=== PATIENT | male | born 1950 | race Caucasian/White ===

== ENCOUNTER 2023-07-31 08:28 | Day surgery (SDC) | payer OTHER ==
[~2023-07-31] VITALS: Ht 180.3 cm; Wt 94.4 kg
[~2023-07-31 08:28] MED LIST: ATOR10 PO; Balanced Salt Epinephrine Irrigation Solution 500 mL IR SCH; GLUCOPHAGE1000 M1 PO; INVOKANA300 MG PO; Inderal 20 mg T20 MG PO; LEVEMIR100 UNIT/1; LEVOTHYROXINE175 MC9 PO; Lidocaine HCl/Pf 1% 5 ML VIAL XX SCH; Moxifloxacin HCL 0.5 MG/0.1 ML 0.4MLSYR RIGHTEYE SCH; NS 500 ML IV ONE; PHENYLEPHRINE\\TROPICAMIDE\\TETRACAINE OPHTHALMIC DILATING SOLN RIGHTEYE PRN; Povidone-Iodine 450 DROP/30 ML Solution ONE; Povidone-Iodine 450 DROP/30 ML Solution RIGHTEYE SCH; Tropicamide 1% Opth Soln 15 ML BTL ONE; VICTOZA 2-0.6 MG/0.1
[2023-07-31] MEDS ORDERED: TOUJEO MAX300 UNIT/2 (08:44)
[2023-07-31] MEDS ORDERED: NS 500 ML IV ONE (08:53)
--- NOTE | 2023-07-31 08:53 | NUR ---
07/31/23 0853 Jennifer Nix AT 0843 PLEDGET AT 0876
[2023-07-31] MEDS ORDERED: FentaNYL Citrate 50 MCG/ML 2 ML Injection ONE (09:07)
[2023-07-31] MEDS ORDERED: Midazolam HCl 1MG / ML 2ML Vial ONE (09:07)
[2023-07-31] MEDS ORDERED: Ondansetron HCl 2 MG / ML 2ML Vial ONE (09:34)
[2023-07-31] MEDS ORDERED: Tetracaine HCl 0.5% Opth Soln 15 ml XX ONE (09:36)
[2023-07-31 09:51] VITALS: BP 121/66
--- NOTE | 2023-07-31 10:21 | NUR ---
07/31/23 Radha1 Pranay Christine PT'S O2 PERIODICALLY DROPPED BREIFLY TO 88-89% IN SDU. PT WAS ABLE TO RETURN TO >94% WITH DEEP BREATHS. HE DENIED RESPIRATORY SYMPTOMS INCLUDING DIZZINESS AND SOB. NONE WERE OBSERVED. HE WAS GIVEN INCENTIVVE SPIROMETER AND INSTRUCTED IN ITS USE. MILADY ROJAS CONSULTED AND APPROVED D/C. WAS ENCOURAGED TO MONITOR PT AND ENCOURAGE DEEP BREATHS.
== END 2023-07-31 10:15 | disposition home or self-care (01) ==
LOC: ORSCSDS 08:28
PROVIDERS: Student in an Organized Health Care Education/Training Program
PROC: 08RJ3JZ Replacement of Right Lens with Synthetic Substitute, Percutaneous Approach (ICD-10-PCS; principal; 2023-07-31 09:30)
DX: E11.36 Type 2 diabetes mellitus with diabetic cataract (principal); H25.11 Age-related nuclear cataract, right eye; I10 Essential (primary) hypertension; E07.9 Disorder of thyroid, unspecified; Z79.4 Long term (current) use of insulin; Z79.899 Other long term (current) drug therapy; Z87.891 Personal history of nicotine dependence
CPT/HCPCS: 82947; J2250; J2405; J3010; J7040; V2632

== ENCOUNTER 2023-08-14 08:23 | Day surgery (SDC) | payer OTHER ==
[~2023-08-14] VITALS: Ht 180.3 cm; Wt 95.8 kg
[~2023-08-14 08:23] MED LIST changes: +FentaNYL Citrate 50 MCG/ML 2 ML Injection ONE; -GLUCOPHAGE1000 M1 PO; +INSDET100 SC; +METF500 PO; +Midazolam HCl 1MG / ML 2ML Vial ONE; +Moxifloxacin HCL 0.5 MG/0.1 ML 0.4MLSYR LEFTEYE SCH; -Moxifloxacin HCL 0.5 MG/0.1 ML 0.4MLSYR RIGHTEYE SCH; +PHENYLEPHRINE\\TROPICAMIDE\\TETRACAINE OPHTHALMIC DILATING SOLN LEFTEYE PRN; -PHENYLEPHRINE\\TROPICAMIDE\\TETRACAINE OPHTHALMIC DILATING SOLN RIGHTEYE PRN; +Povidone-Iodine 450 DROP/30 ML Solution LEFTEYE SCH; -Povidone-Iodine 450 DROP/30 ML Solution RIGHTEYE SCH; +TOUJEO MAX300 UNIT/2; -Tropicamide 1% Opth Soln 15 ML BTL ONE
[2023-08-14] MEDS ORDERED: TOUJEO MAX300 UNIT/2 SQ (08:34)
[2023-08-14] MEDS ORDERED: NS 500 ML IV ONE ×2 (08:41)
--- NOTE | 2023-08-14 08:41 | NUR ---
08/14/23 0841 Nabil Chavez CALL LIGHT WITHIN REACH. TETRACAINE IN LEFT EYE AT 0835 AND PLEDGETT IN AT 0836
[2023-08-14] MEDS ORDERED: Tetracaine HCl 0.5% Opth Soln 15 ml LEFTEYE ONE (09:16)
[2023-08-14 09:38] VITALS: BP 129/69
== END 2023-08-14 09:47 | disposition home or self-care (01) ==
LOC: ORSCSDS 08:23
PROVIDERS: Student in an Organized Health Care Education/Training Program
PROC: 08RK3JZ Replacement of Left Lens with Synthetic Substitute, Percutaneous Approach (ICD-10-PCS; principal; 2023-08-14 09:30)
DX: E11.36 Type 2 diabetes mellitus with diabetic cataract (principal); H25.12 Age-related nuclear cataract, left eye; Z96.1 Presence of intraocular lens
CPT/HCPCS: 82947; J2250; J3010; J7040; V2632

== ENCOUNTER → 2024-09-15 | Outpatient (CLI) | payer OTHER ==
[~2024-09-15] MED LIST changes: -Balanced Salt Epinephrine Irrigation Solution 500 mL IR SCH; -FentaNYL Citrate 50 MCG/ML 2 ML Injection ONE; -Lidocaine HCl/Pf 1% 5 ML VIAL XX SCH; -Midazolam HCl 1MG / ML 2ML Vial ONE; -Moxifloxacin HCL 0.5 MG/0.1 ML 0.4MLSYR LEFTEYE SCH; -NS 500 ML IV ONE; -PHENYLEPHRINE\\TROPICAMIDE\\TETRACAINE OPHTHALMIC DILATING SOLN LEFTEYE PRN; -Povidone-Iodine 450 DROP/30 ML Solution LEFTEYE SCH; -Povidone-Iodine 450 DROP/30 ML Solution ONE; +TOUJEO MAX300 UNIT/2 SQ
[2024-09-15 19:55] LABS: Creatinine, Urine Random 63.8 mg/dL (27.00-270.00); Microalbumin, Random Urine 11.7 mg/L (0.000-20.000)
== END ==
LOC: LAB SHORT 17:11 → LAB 17:11
PROVIDERS: Family Medicine
DX: N18.31 Chronic kidney disease, stage 3a (principal)
CPT/HCPCS: 82043; 82570